=== PATIENT | female | born 2005 | race Two or more races ===

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

== ENCOUNTER → 2023-12-15 | Outpatient (CLI) | payer MEDICAID ==
[~2023-12-15] MED LIST changes: +AZIT-185 PO; -AZIT250T8 PO
[2023-12-15 11:55] LABS: Triglycerides 78 mg/dL (< 150)
[2023-12-15 11:56] LABS: Cholesterol 172 mg/dL (< 200); HDL Cholesterol 51 mg/dL (40-59); LDL Cholesterol 121 mg/dL (< 100)
== END | disposition home or self-care (01) ==
LOC: LAB 10:53
PROVIDERS: ATTEND Student in an Organized Health Care Education/Training Program
DX: E78.5 Hyperlipidemia, unspecified (principal)
CPT/HCPCS: 36415; 80061

== ENCOUNTER → 2024-02-02 | Outpatient (CLI) | payer MEDICAID | END | disposition home or self-care (01) | LOC: XYW 10:37 | PROVIDERS: ATTEND Student in an Organized Health Care Education/Training Program | DX: R06.02 Shortness of breath (principal); I10 Essential (primary) hypertension; I48.91 Unspecified atrial fibrillation; E78.5 Hyperlipidemia, unspecified; I45.10 Unspecified right bundle-branch block | CPT/HCPCS: 78452; 93017; A9500 ==